=== PATIENT | male | born 1960 | race Caucasian/White ===

== ENCOUNTER 2018-01-12 04:34 | Emergency (ER) | payer BC ==
[2018-01-12 04:42] VITALS: BP 141/89; PULSE 58; TEMP 97.4; BMI 27.8
[2018-01-12] MEDS ORDERED: ACETAMINOPHEN 500 MG TABLET (FP) PO ONE (04:49)
[2018-01-12] MEDS ORDERED: ALBUTEROL SO4 2.5/IPRATROPIUM 0.5 INH SOL 3 ML VIAL.NEB. NEB ONE (04:49)
[2018-01-12] MEDS ORDERED: predniSONE 20 MG TABLET (UD) PO ONE (04:49)
--- NOTE | 2018-01-12 04:49 | PDOC ---
History of Present Illness - General Chief Complaint: Respiratory Stated Complaint: COUGH, HEADACHE Time Seen by Provider: 01/12/18 04:37 - History of Present Illness Initial Comments: 01/12/18 04:49 57-year-old male with no significant past medical history presents to the emergency department complaining of persistent non-productive cough. Pt reports the cough started 3 days ago and has been keeping him up at night prompting him to present to the emergency department today. Patient had a similar cough 3 weeks ago that was diagnosed as bronchitis at the time. He had x-rays at the time that were negative for pneumonia and was treated with a course of clarithromycin, a 5 day prednisone taper, albuterol, and guaifenesin with codeine. He reports his symptoms resolved after about a week and he's been fine up until 2 days ago. This time around he has tried to use the inhaler and the cough syrup with minimal improvement. He reports associated headache and he coughs. Headache is of gradual onset and and a global distribution. Denies fevers, chills. Reports some frontal sinus pain. No recent travel. Patient works for [employer], denies recent exposures. PMD: Dr. Victor Social: denies smoking, drugs, social etoh Past History - Past Medical History Allergies/Adverse Reactions: Allergies Allergy/AdvReac Type Severity Reaction Status Date / Time No Known Allergies Allergy Verified 01/12/18 04:35 Home Medications: Ambulatory Orders NK [No Known Home Medication] 01/12/18 COPD: No Other medical history: DENIES - Suicide/Smoking/Psychosocial Hx Smoking History: Never smoked Have you smoked in the past 12 months: No Information on smoking cessation initiated: No Hx Alcohol Use: No Drug/Substance Use Hx: No Substance Use Type: None Review of Systems - Review of Systems Comments:: 01/12/18 04:53 GENERAL/CONSTITUTIONAL: No fever or chills. No weakness. HEAD, EYES, EARS, NOSE AND THROAT: No change in vision. No ear pain or discharge. No sore throat. GASTROINTESTINAL: No nausea, vomiting, diarrhea or constipation. GENITOURINARY: No dysuria, frequency, or change in urination. CARDIOVASCULAR: No chest pain or shortness of breath. RESPIRATORY: +cough, wheezing, no hemoptysis. MUSCULOSKELETAL: No joint or muscle swelling or pain. No neck or back pain. SKIN: No rash NEUROLOGIC: No headache, vertigo, loss of consciousness, or change in strength/ sensation. ENDOCRINE: No increased thirst. No abnormal weight change. HEMATOLOGIC/LYMPHATIC: No anemia, easy bleeding, or history of blood clots. ALLERGIC/IMMUNOLOGIC: No hives or skin allergy. *Physical Exam - Vital Signs Last Vital Signs Temp Pulse Resp BP Pulse Ox 97.4 F L 58 L 18 141/89 100 01/12/18 04:38 01/12/18 04:38 01/12/18 04:38 01/12/18 04:38 01/12/18 04:42 - Physical Exam Comments: 01/12/18 04:53 GENERAL: Awake, alert, and fully oriented, in no acute distress HEAD: No signs of trauma EYES: PERRLA, EOMI, sclera anicteric, conjunctiva clear ENT: Auricles normal inspection, hearing grossly normal, nares patent, oropharynx clear without exudates. Moist mucosa NECK: Normal ROM, supple, no lymphadenopathy, JVD, or masses LUNGS: +mild scattered wheezing, good air movement, no crackles HEART: Regular rate and rhythm, normal S1 and S2, no murmurs, rubs or gallops ABDOMEN: Soft, nontender, normoactive bowel sounds. No guarding, no rebound. No masses EXTREMITIES: Normal range of motion, no edema. No clubbing or cyanosis. No cords, erythema, or tenderness NEUROLOGICAL: Normal speech, cranial nerves intact, negative pronator drift, 5/ 5 strength in all 4 extremities, normal sensation to light touch in all 4 extremities, normal cerebellar exam, normal gait, normal reflexes and tone Medical Decision Making - Medical Decision Making 01/12/18 04:56 57yo M recent dx and treated for broncitis presents to the ED c/o persistent cough and headache when coughing. Vitals wnl. Exam with scattered wheezing, but good air movement with no focal crackles. Likely reactive airway disease, possible cough variant asthma. In absence of fevers, productive cough, hypoxia and crackles on exam will hold off on imaging as likely low yield. Will treat with duoneb and steroid dose and reassess. Will give tylenol for burk. 01/12/18 05:19 Pt lungs completely clear after the nebs. Cough improved a bit, discussed with patient that steroids will take some time to kick in. Advised pt to keep using albuterol every 4 hours as needed. Also will send a prescription for clarithromycin in case he develops fevers, productive cough. Pt would like to go home and rest, requests DC I discussed the physical exam findings, ancillary test results and final diagnoses with the patient. I answered all of the patient's questions. The patient was satisfied with the care received and felt comfortable with the discharge plan and treatment plan. The patient will call their primary care physician within 24 hours to arrange follow-up and will return to the Emergency Department with any new, persistent or worsening symptoms. *DC/Admit/Observation/Transfer Diagnosis at time of Disposition: Bronchitis, Cough variant asthma - Discharge Dispostion Disposition: HOME Condition at time of disposition: Stable Admit: No - Referrals Referrals: Donaldo Victor MD [Primary Care Provider] - - Patient Instructions Printed Discharge Instructions: DI for Acute Bronchitis Additional Instructions: Take the steroids daily Use the albuterol pump every 4hrs Follow up with Dr. Victor within 1-2 days Return to the emergency department if you have any new, worsening or concerning symptoms period - Post Discharge Activity - Attestations Physician Attestion: 01/12/18 05:24 I, Dr. Dorinda Rosenberg MD, attest that this document has been prepared under my direction and personally reviewed by me in its entirety. I further attest, that it accurately reflects all work, treatment, procedures and medical decision -making performed by me.
== END 2018-01-12 05:28 | disposition home or self-care (01) ==
LOC: FER 04:34
PROC: 3E0F7GC Introduction of Other Therapeutic Substance into Respiratory Tract, Via Natural or Artificial Opening (ICD-10-PCS; principal; 2018-01-12)
DX: J40 Bronchitis, not specified as acute or chronic (principal); J45.998 Other asthma; R05 Cough
CPT/HCPCS: 99281-25

== ENCOUNTER 2018-12-03 12:07 | Emergency (ER) | payer BC, OTHER ==
[2018-12-03 12:21] VITALS: BMI 27.8
[2018-12-03] MEDS ORDERED: ACETAMINOPHEN 325 MG TABLET (FP) PO ONE (12:30)
--- NOTE | 2018-12-03 12:30 | PDOC ---
History of Present Illness - General Chief Complaint: Pain, Acute Stated Complaint: RIGHT SHOULDER PAIN Time Seen by Provider: 12/03/18 12:20 History Source: Patient Exam Limitations: No Limitations - History of Present Illness Initial Comments: 12/03/18 12:26 58y M no pmhx presents with R shoulder/chest pain. 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 denies any head injury or LOC. Pt with signficaint amount of apin on his R chest wall, worse when he takes a deep berath. deniesa ny headache, neck pain, back pain, n/v, abd pain, fever/chills, numbness/tingling/weakness. does not take any meds regularly. pt also endorses mild pain to his R hip when he walks/moves. notes he was able to ambulate to a car afterwards. 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 Past History - Past Medical History Allergies/Adverse Reactions: Allergies Allergy/AdvReac Type Severity Reaction Status Date / Time No Known Allergies Allergy Verified 12/03/18 12:08 Home Medications: Ambulatory Orders Tramadol HCl 50 mg PO QID PRN #12 tablet MDD 4 12/03/18 COPD: No - Suicide/Smoking/Psychosocial Hx Smoking History: Never smoked Have you smoked in the past 12 months: No Hx Alcohol Use: No Drug/Substance Use Hx: No Substance Use Type: None Review of Systems - Review of Systems Able to Perform ROS?: Yes Comments:: 12/03/18 12:57 CONSTITUTIONAL: No reported: Fever, Chills, Diaphoresis, Generalized Weakness, Malaise, Loss of Appetite HEENT: No reported: Rhinorrhea, Nasal Congestion, Throat Pain, Throat Swelling, Difficulty Swallowing, Mouth Swelling, Ear Pain, Eye Pain, Visual Changes CARDIOVASCULAR: +Chest Pain, No reported: Syncope, Palpitations, Irregular Heart Rate, Lightheadedness, Peripheral Edema RESPIRATORY: No reported: Cough, Shortness of Breath, SOB with Exertion, Orthopnea, Wheezing , Stridor, Hemoptysis GASTROINTESTINAL: No reported: Abdominal pain, Abdominal Distension, Nausea, Vomiting, Diarrhea, Constipation, Melena, Hematochezia GENITOURINARY: No reported: Dysuria, Frequency, Urgency, Hesitancy, Flank Pain, Genital Pain MUSCULOSKELETAL: +r hip pain No reported: Myalgia, Arthralgia, Joint Swelling, Back pain, Neck Pain SKIN: No reported: Rash, Itching, Pallor HEMEATOLOGIC/IMMUNOLOGIC: No reported: Easy Bleeding, Easy Bruising, Lymphadenopathy, Frequent infections ENDOCRINE: No reported: Unexplained Weight Gain, Unexplained Weight Loss, Heat Intolerance , Cold Intolerance NEUROLOGIC: No reported: Headache, Focal Weakness, Paresthesias, Vertigo, Lightheadedness, Unsteady Gait, Seizure, Mental Status Changes, Incontinence PSYCHIATRIC: No reported: Anxiety, Depression *Physical Exam - Vital Signs Last Vital Signs Temp Pulse Resp BP Pulse Ox 98.2 F 88 18 140/96 100 12/03/18 12:08 12/03/18 12:08 12/03/18 12:08 12/03/18 12:08 12/03/18 12:08 - Physical Exam Comments: 12/03/18 12:58 GENERAL: The patient is awake, alert, and fully oriented, Nontoxic - in no acute distress. HEAD: Normocephalic, atraumatic. EYES: extraocular movements intact, sclera anicteric, conjunctiva clear. ENT: Normal voice, Moist mucous membranes. NECK: Normal range of motion, supple CHEST Wall/ LUNGS: Breath sounds equal, clear to auscultation bilaterally. No wheezes, no rhonchi, no rales. Moderate ttp to the R flank, moderate ttp to R AC joint HEART: Regular rate and rhythm, without murmur, rub or gallop. ABDOMEN: Soft, nontender, No guarding, no rebound. No CVA tenderness, no ecchymosis, no rebound/guarding, EXTREMITIES: Normal range of motion, mild ttp to R ischial rim, NEUROLOGICAL: No facial assymetry, Normal speech, senastion intact diffusely, moving all 4 extremities spontaneously and symmetrically PSYCH: Normal mood, normal affect. SKIN: Warm, Dry, normal turgor, Moderate Sedation - Procedure Monitoring Vital Signs: Procedure Monitoring Vital Signs Temperature 98.2 F 12/03/18 12:08 Pulse Rate 88 12/03/18 12:08 Respiratory Rate 18 12/03/18 12:08 Blood Pressure 140/96 12/03/18 12:08 O2 Sat by Pulse Oximetry (%) 100 12/03/18 12:08 ED Treatment Course - LABORATORY CBC & Chemistry Diagram: 12/03/18 14:26 Medical Decision Making - Medical Decision Making 12/03/18 13:00 will obtain xray to r/o fx of fibs, eval for ac injury w clavical xray R hp /pelvix consider CTAbd to ro blunt injury will stat with UA to r/o hematuria 12/03/18 16:37 ct noted for r rib fx without other injuries will dc with incentive spiromter *DC/Admit/Observation/Transfer Diagnosis at time of Disposition: Right rib fracture Qualifiers: Encounter type: initial encounter Rib fracture type: single rib Fracture type: closed Qualified Code(s): S22.31XA - Fracture of one rib, right side, initial encounter for closed fracture - Discharge Dispostion Disposition: HOME Condition at time of disposition: Stable Decision to Admit order: No - Referrals Referrals: Donaldo Victor MD [Primary Care Provider] - - Patient Instructions Printed Discharge Instructions: DI for Rib Fracture Additional Instructions: Return to the emergency department immediately with ANY new, persistent or worsening symptoms. You have a rib fracture. Use you incentive spirometer every 2 hours. You MUST call and follow up with your doctor within 5 days for further evaluation of your symptoms. Results were discussed with you. Please make sure your doctor reviews the results of your emergency evaluation. Print Language: UPPER SORBIAN - Post Discharge Activity
[2018-12-03] MEDS ORDERED: ACETAMINOPHEN 325 MG TABLET (FP) ONE (12:42)
[2018-12-03 15:05] LABS: ALBUMIN 4.2 g/dl (3.4-5.0); ALK PHOS 47 U/L (45-117); ANION GAP 9 MMOL/L (8-16); BILIRUBIN,TOTAL 0.8 mg/dl (0.2-1); BLOOD UREA NITROGEN 25 mg/dl (7-18); CALCIUM 9.1 mg/dl (8.5-10); CHLORIDE 103 mmol/L (98-107); CO2 24 mmol/L (21-32); GLUCOSE,RANDOM 85 mg/dl (74-106); POTASSIUM 4.4 mmol/L (3.5-5.1); SGOT/AST 37 U/L (15-37); SGPT/ALT 40 U/L (13-61); SODIUM 136 mmol/L (136-145); TOT PROT 6.8 g/dl (6.4-8.2)
[2018-12-03 15:07] LABS: PH,URINE 5.5 (4.5-8); URINE APPEARANCE Clear; URINE BILIRUBIN Negative (NEGATIVE); URINE COLOR Amber; URINE GLUCOSE (UA) Negative (NEGATIVE); URINE KETONE Negative (NEGATIVE); URINE LEUK ESTERASE Negative (NEGATIVE); URINE NITRITE Negative (NEGATIVE); URINE PROTEIN Negative (NEGATIVE); URINE UROBILINOGEN 0.2 (0.2-1.0)
[2018-12-03 16:37] VITALS: BP 128/85; PULSE 68; TEMP 97.7
[2018-12-03] MEDS ORDERED: traMADol HCL 50 MG TABLET PO ONE (16:37)
[2018-12-03] MEDS ORDERED: traMADol HCL 50 MG TABLET ONE (16:39)
== END 2018-12-03 16:42 | disposition home or self-care (01) ==
LOC: FER 12:07
DX: S22.31XA Fracture of one rib, right side, initial encounter for closed fracture (principal); W01.0XXA Fall on same level from slipping, tripping and stumbling without subsequent striking against object, initial encounter; Y93.89 Activity, other specified; Y92.89 Other specified places as the place of occurrence of the external cause; Y99.0 Civilian activity done for income or pay
CPT/HCPCS: 36415; 71046-TC-FY; 71101-TC-RT-FY; 73000-TC-RT-FY; 73523-TC-FY; 74177-TC; 80053; 81003; 99282-25